=== PATIENT | female | born 1935 | race Caucasian/White ===

== ENCOUNTER 2020-03-31 00:15 | Outpatient (CLI) | payer MEDICARE, OTHER, SELFPAY ==
--- NOTE | 2020-03-31 | DI.NM_ITS ---
APPROVED REPORT Exam: Pharmacologic Patient Location: In-Patient Room/Bed: Stress Nurse: Rose Grijalva RN BMI: 29.62 Baseline Rhythm: Sinus Rhythm Comment: With LBBB Indications: Patient testing today for further risk stratification. Patient reports approximately 3 m onths ago she had and episode of jaw pain that radiated down left arm. Also approximately 1 year ago she fell in synagogue?I just blanked out???. Medical History Medical History: Cardiomyopathy, GERD, Syncope, Left BBB Patient states she was told she has a histor y of ???silent heart attacks???. Cardiac Medications: Carvedilol, Atorvastatin, Lisinopril. Allergies: No known drug allergies Cardiac Risk Factors: FHX of CAD, Diabetes (non-insulin) Previous Cardiac Procedures: None Pretest Chest Pain Characteristics: None Exercise History: Physically active Physical Disabilities: Legs Lung Sounds: Clear to auscultation Heart Sounds: Regular Stress Test Details Test: Pharmacologic stress testing performed using 0.4 mg of regadenoson per 5 mL given IV over 10 s econds. Reason for pharmacologic stress test: LBBB. Nuclear Acquisition: Rest Tc-99m/Stress Tc-99m 1 day Rest Isotope: Tc-99m Sestamibi. Dose: 11.0 Date: 03/31/2020 Injection Time: 0900 Stress Isotope: Tc-99m Sestamibi. Dose: 34.7 Date: 03/31/2020 Injection Time: 1115 HR Resting HR Supine: 91 bpm Max Heart Rate (APMHR): 136 bpm Target HR (85% APMHR): 115 bpm Max HR Achieved: 126 bpm % of APMHR: 92 BP Resting BP Supine: 138/80 mmHg Max BP: 144/80 mmHg ECG Resting ECG: Sinus Rhythm, LBBB Recovery ST Change: No significant ST segment changes noted. Clinical Stress Symptoms: None reported per patient. Stress ECG Conclusion 1. There is a pharmacological stress test. 2. EKG portion of this exam is nondiagnostic. Stress Test Summary STAGE HR BP Symptoms NOTES Supine 91 138/80 1 min post Lexiscan injection 119 144/72 3 min post Lexiscan injection 125 140/70 6 min post Lexiscan injection 118 136/78 MPI Conclusion Ejection fraction was 24% with stress. There is global hypokinesis. The interpretation of the study was indefinitely affected by bowel uptake There is a moderate sized fixed perfusion defect of the apex and apical anterior wall. There is no evidence of reversible ischemia. Radiologist Interpretation Radiologist agrees with Strategy Analyst's Interpretation. Radiologist Interpretation by: Jessenia Angelo MD Interpretation Date/Time: 04/01/2020 17:34:32
[2020-03-31] MEDS: Regadenoson 0.4 MG/5 ML SYR IVP (11:47)
== END 2020-03-31 00:35 ==
PROVIDERS: PCP Internal Medicine; Visit Provider Internal Medicine Interventional Cardiology
DX: R07.9 Chest pain, unspecified (principal); R55 Syncope and collapse; I42.9 Cardiomyopathy, unspecified; I44.7 Left bundle-branch block, unspecified; K21.9 Gastro-esophageal reflux disease without esophagitis; Z82.49 Family history of ischemic heart disease and other diseases of the circulatory system
CPT/HCPCS: 78452; 93016; 93018; 93017; J2785